=== PATIENT | male | born 1985 | race Caucasian/White ===

== ENCOUNTER 2019-05-02 | Emergency (ER) | payer SELFPAY ==
[2019-05-02] MEDS ORDERED: BACTRIM DS1 TAB PO (22:34)
== END 2019-05-02 22:50 | disposition home or self-care (01) | DRG 603 ==
PROC: 0X940ZZ Drainage of Right Axilla, Open Approach (ICD-10-PCS; principal; 2019-05-02)
DX: L02.411 Cutaneous abscess of right axilla (principal); F17.210 Nicotine dependence, cigarettes, uncomplicated